=== PATIENT | male | born 1950 ===

== ENCOUNTER 2018-04-18 17:23 | Emergency (ER) | payer OTHER ==
[2018-04-18 17:45] VITALS: BMI 27.9
[2018-04-18 17:48] VITALS: BP 166/88; PULSE 65; RESP 18; TEMP 99.1; O2SAT 98
[2018-04-18] MEDS ORDERED: Absorbable Gelatin Sponge Size 12-7 TP ONE (19:06)
[2018-04-18] MEDS ORDERED: Tdap Vaccine 0.5 ml Vial (10-64 yrs) IM ONE ×2 (19:13→19:27)
--- NOTE | 2018-04-18 19:16 | ED PDOC ---
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 Patient reports that 1.5x hours prior to arrival, he was at work, cutting a piece of plastic with a knife, when he accidentally cut his left 2nd finger. Patient is right hand dominant. Patient denies having any other complaints. Tetanus not up to date. Patient seeking wound evaluation/care. PMD: None. Past Medical History Reviewed: Historical Data, Nursing Documentation, Vital Signs Vital Signs: Last Vital Signs Temp 99.1 F 04/18/18 17:45 Pulse 65 04/18/18 17:45 Resp 18 04/18/18 17:45 BP 166/88 H 04/18/18 17:45 Pulse Ox 98 04/18/18 17:45 MERRY Report Viewed: Yes - Medical History PMH: Arthritis, HTN, Malignancy (prostate cancer) - Surgical History Other surgeries: prostate surgery - Family History Family History: States: No Known Family Hx - Social History Current smoker - smoking cessation education provided: No - Home Medications Home Medications: Ambulatory Orders Medication Instructions Recorded amLODIPine [Norvasc] 5 mg PO DAILY 04/28/17 Acetaminophen [Acetaminophen 8 650 mg PO Q8 PRN #21 tablet.er 04/18/18 Hour] Meloxicam [Mobic] 15 mg PO DAILY PRN #10 tab 04/18/18 RX: Bacitracin Ointment 1 applic TOP BID #1 tube 04/18/18 [Bacitracin] - Allergies Allergies/Adverse Reactions: Allergies Allergy/AdvReac Type Severity Reaction Status Date / Time No Known Allergies Allergy Verified 04/18/18 17:45 Review of Systems ROS Statement: Except As Marked, All Systems Reviewed And Found Negative Musculoskeletal: Positive for: Other (left 2nd digit laceration) Physical Exam - Reviewed Nursing Documentation Reviewed: Yes Vital Signs Reviewed: Yes - Physical Exam Comments: GENERAL APPEARANCE: Patient is awake, alert, oriented x 3, in no acute distress. Resting comfortably. SKIN: Warm, dry; (-) cyanosis. CHEST AND RESPIRATORY: (-) rales, (-) rhonchi, (-) wheezes; breath sounds equal bilaterally. Respirations even and nonlabored. HEART AND CARDIOVASCULAR: (-) irregularity NECK: Supple, FROM ENT: Mucus membranes moist. Airway patent, (-) stridor. Left hand: 1cm x 1cm superficial avulsion to distal palmar surface of left 2nd digit. (+) active bleeding. Full ROM of digit, sensation intact, capillary refill intact. (-) nail involvement. Remainder of left hand/digits nontender with FROM NEURO AND PSYCH: Mental status as above. Gait: steady. Speech: clear. (-) facial asymmetry - ECG O2 Sat by Pulse Oximetry: 98 (RA) Pulse Ox Interpretation: Normal Medical Decision Making Medical Decision Makin:05 Clinical impression: 68 year old male with a finger laceration. Initial plan: * adacel 10-64 yrs 0.5 ml IM * wound irrigated with normal saline/betadine solution * gel foam dressing * reevaluation 1934 Patient with adequate hemostasis in ED. Dressing intact and dry. Educated on wound care. On re-evaluation, patient reports improvement of symptoms. On exam, patient remains AAOx3, in no acute distress. Vitals stable. Lab/Diagnostic results d/w the patient in great detail. Diagnosis of skin avulsion of finger d/w the patient. Based on history, exam and diagnostic results, plan will be for outpatient follow up with clinic. Patient instructed to follow-up with pmd / referral provided / the clinic in 1- 2 days without fail. Advised to take medication as prescribed. Return to the emergency room at any time for any new or worsening symptoms. Patient states he fully agrees with and understands discharge instructions. States that he agrees with the plan and disposition. Verbalized and repeated discharge instructions and plan. I have given the patient opportunity to ask any additional questions. Scribe Attestation: Documented byVioleta Fabian, acting as a scribe for Violeta Steele Provider Scribe Attestation: All medical record entries made by the Scribe were at my direction and personally dictated by me. I have reviewed the chart and agree that the record accurately reflects my personal performance of the history, physical exam, medical decision making, and the department course for this patient. I have also personally directed, reviewed, and agree with the discharge instructions and disposition. Disposition - Clinical Impression Clinical Impression: Avulsion of skin of finger - Patient ED Disposition Is Patient to be Admitted: No Counseled Patient/Family Regarding: Studies Performed, Diagnosis, Need For Followup, Rx Given - Disposition Referrals: [facility] [Outside] Joe Horn MD [Medical Doctor] - Disposition: Routine/Home Disposition Time: 19:30 Condition: STABLE Additional Instructions: La atencin mdica de emergencia que recibi hoy se dirigi a amy sntomas agudos. Si le recetaron algn medicamento, llnelo y tmelo segn las indicaciones. Los sntomas pueden tardar varios gallego en resolverse. Regrese al Departamento de Emergencias si amy sntomas empeoran, no mejoran o si tiene otros problemas. Comunquese con gregorio mdico dentro de 2 gallego para lois nueva evaluacin y keanu un seguimiento o llame a rufus de los mdicos / clnicas a los que angeles sido referido y que figuran en el formulario de Informacin de visita al paciente que se incluye en gregorio paquete de ana. Lleve todos los documentos que le entregaron al momento del ana junto con todos los medicamentos que est tomando para gregorio visita de seguimiento. Nuestro tratamiento no puede reemplazar la atencin mdica continua por parte de un proveedor de atencin primaria (PCP) fuera del departamento de emergencias. Prescriptions: Acetaminophen [Acetaminophen 8 Hour] 650 mg PO Q8 PRN #21 tablet.er PRN Reason: Pain, Moderate (4-7) RX: Bacitracin Ointment [Bacitracin] 1 applic TOP BID #1 tube Meloxicam [Mobic] 15 mg PO DAILY PRN #10 tab PRN Reason: Pain, Moderate (4-7) Instructions: Wound Care, Common Finger Injuries (DC) Forms: [employer] (Thai) Print Language: [place] - POA Present On Arrival: None
== END 2018-04-18 19:52 | disposition home or self-care (01) ==
LOC: H.ER 17:23
DX: S61.211A Laceration without foreign body of left index finger without damage to nail, initial encounter (principal); W26.0XXA Contact with knife, initial encounter; Y99.0 Civilian activity done for income or pay; I10 Essential (primary) hypertension; Z85.46 Personal history of malignant neoplasm of prostate